=== PATIENT | female | born 1975 | race Caucasian/White ===

== ENCOUNTER 2016-10-19 05:24 | Emergency (ER) | payer SELFPAY | END 2016-10-19 06:20 | disposition home or self-care (01) | LOC: D.ER 05:24 | DX: M54.5 Low back pain (principal); G89.29 Other chronic pain; I10 Essential (primary) hypertension; F32.9 Major depressive disorder, single episode, unspecified; F17.200 Nicotine dependence, unspecified, uncomplicated ==

== ENCOUNTER 2016-11-22 21:03 | Emergency (ER) | payer MEDICAID | END 2016-11-22 23:12 | disposition home or self-care (01) | LOC: D.ER 21:03 | DX: G43.909 Migraine, unspecified, not intractable, without status migrainosus (principal); F31.89 Other bipolar disorder; I10 Essential (primary) hypertension; F17.200 Nicotine dependence, unspecified, uncomplicated ==

== ENCOUNTER 2017-01-06 19:11 | Emergency (ER) | payer MEDICAID | END 2017-01-06 20:07 | disposition home or self-care (01) | LOC: D.ER 19:11 | DX: M54.5 Low back pain (principal); F31.89 Other bipolar disorder; I10 Essential (primary) hypertension ==

== ENCOUNTER → 2017-01-06 | Emergency (ER) | payer MEDICAID | END | disposition home or self-care (01) | LOC: D.ER 17:16 | DX: Z02.9 Encounter for administrative examinations, unspecified (principal) ==

== ENCOUNTER 2017-02-20 08:52 | Outpatient (CLI) | payer MEDICAID | END 2017-02-20 11:11 | LOC: D.MAMMO 08:52 | DX: Z12.31 Encounter for screening mammogram for malignant neoplasm of breast (principal) ==

== ENCOUNTER → 2017-04-17 17:26 | Outpatient (CLI) | payer MEDICAID | END | disposition home or self-care (01) | LOC: D.MAMMO 03-26 09:30 | DX: R92.8 Other abnormal and inconclusive findings on diagnostic imaging of breast (principal) ==

== ENCOUNTER 2017-06-20 18:48 | Emergency (ER) | payer MEDICAID | END 2017-06-20 20:04 | disposition home or self-care (01) | LOC: D.ER 18:48 | DX: S16.1XXA Strain of muscle, fascia and tendon at neck level, initial encounter (principal); X58.XXXA Exposure to other specified factors, initial encounter; Y93.89 Activity, other specified; Y92.89 Other specified places as the place of occurrence of the external cause; I10 Essential (primary) hypertension; M62.838 Other muscle spasm; F17.200 Nicotine dependence, unspecified, uncomplicated ==

== ENCOUNTER 2017-07-30 16:54 | Emergency (ER) | payer MEDICAID | END 2017-07-30 17:51 | disposition home or self-care (01) | LOC: D.ER 16:54 | DX: S16.1XXA Strain of muscle, fascia and tendon at neck level, initial encounter (principal); X58.XXXA Exposure to other specified factors, initial encounter; Y93.89 Activity, other specified; Y92.89 Other specified places as the place of occurrence of the external cause; M62.838 Other muscle spasm; I10 Essential (primary) hypertension; F17.200 Nicotine dependence, unspecified, uncomplicated ==

== ENCOUNTER 2017-09-25 13:07 | Emergency (ER) | payer MEDICAID | END 2017-09-25 13:36 | disposition left against medical advice (07) | LOC: D.ER 13:07 | DX: M54.2 Cervicalgia (principal) ==

== ENCOUNTER 2017-10-24 16:40 | Emergency (ER) | payer MEDICAID | END 2017-10-24 18:55 | disposition home or self-care (01) | LOC: D.ER 16:40 | DX: G43.909 Migraine, unspecified, not intractable, without status migrainosus (principal); I10 Essential (primary) hypertension ==

== ENCOUNTER → 2018-04-13 16:35 | Outpatient (CLI) | payer MEDICAID ==
[~2018-04-13 16:35] MED LIST: DEPAKOTE500 MG PO; DESERYL50 M2 PO; EFFEXOR75 MG PO; FLAGYL500 MG PO; KLONOPIN1 MG PO; MACROBID100 MG PO
== END | disposition home or self-care (01) ==
LOC: D.MAMMO 10:30
DX: R92.8 Other abnormal and inconclusive findings on diagnostic imaging of breast (principal)

== ENCOUNTER 2018-04-14 15:00 | Emergency (ER) | payer MEDICAID ==
[~2018-04-14] VITALS: Ht 160 cm; Wt 84.1 kg
[2018-04-14 15:04] VITALS: Ht 160 cm; Wt 84.1 kg
[2018-04-14] MEDS ORDERED: DEPAKOTE500 MG PO (15:06)
[2018-04-14] MEDS ORDERED: EFFEXOR75 MG PO (15:06)
[2018-04-14] MEDS ORDERED: KLONOPIN1 MG PO (15:07)
[2018-04-14] MEDS ORDERED: DESERYL50 M2 PO (15:08)
[2018-04-14 15:42] LABS: BASOPHILS 0.3 % (0-2); EOSINOPHILS 6.1 % (0-7); HEMATOCRIT 43.5 % (36.0-48.0); HEMOGLOBIN 15.7 g/dL (12-16); IMMATURE GRANULOCYTES 0.1 % (0-5); LYMPHOCYTES 36.9 % (15-50); MCH 34.4 pg (26.0-34.0); MCHC 36.1 g/dL (31.0-37.0); MCV 95.2 fL (80.0-100.0); MEAN PLATELET VOLUME 9.2 fL (7.4-10.4); MONOCYTES 6.1 % (2-11); NEUTROPHILS 50.5 % (40-80); PLATELET COUNT 230 10x3/uL (130-400); RBC 4.57 10x6/uL (4.00-5.40); RDW 12.5 % (11.5-14.5); WBC 7.2 10x3/uL (4.8-10.8)
[2018-04-14 15:55] LABS: APPEARANCE CLEAR (CLEAR); COLOR YELLOW (YELLOW); SPECIFIC GRAVITY 1.025 (1.005-1.020)
[2018-04-14 15:56] LABS: BILIRUBIN NEGATIVE (NEGATIVE); GLUCOSE NEGATIVE (NEGATIVE); KETONE NEGATIVE (NEGATIVE); NITRITE NEGATIVE (NEGATIVE); PROTEIN NEGATIVE (NEGATIVE); UROBILINOGEN NORMAL (NORMAL)
[2018-04-14 15:58] LABS: ALBUMIN 3.9 g/dL (3.4-5.0); ALKALINE PHOSPHATASE 88 U/L (46-116); ALT (SGPT) 22 U/L (10-68); BILIRUBIN - TOTAL 0.46 mg/dL (0.2-1.3); CALC OSMOLALITY 279 mosm/kg (275-300); CARBON DIOXIDE 25.8 mmol/L (21.0-32.0); CHLORIDE - SERUM 105 mmol/L (98-107); CREATININE - SERUM 0.8 mg/dL (0.6-1.3); GLUCOSE 110 mg/dL (74-106); POTASSIUM - SERUM 3.3 mmol/L (3.5-5.1); PROTEIN - SERUM 7.5 g/dL (6.4-8.2); SODIUM 141 mmol/L (136-145); UREA NITROGEN 6 mg/dL (7-18); eGFR NON AFRICAN AMERICAN 82 mL/min (90-120)
[2018-04-14 15:59] LABS: BACTERIA MODERATE /hpf (NONE SEEN); RED CELLS - URINE 0-5 /hpf (0-5); WHITE CELLS - URINE 0-5 /hpf (0-5)
[2018-04-14] MEDS ORDERED: MACROBID100 MG PO (18:10)
[2018-04-14] MEDS ORDERED: FLAGYL500 MG PO (18:10)
[2018-04-14 18:20] VITALS: BP 157/99
== END 2018-04-14 18:22 | disposition home or self-care (01) ==
LOC: D.ER 15:00
PROVIDERS: Family Medicine
DX: N39.0 Urinary tract infection, site not specified (principal); N76.0 Acute vaginitis; B96.89 Other specified bacterial agents as the cause of diseases classified elsewhere; F17.200 Nicotine dependence, unspecified, uncomplicated